=== PATIENT | female | born 1985 | race African-American/Black ===

== ENCOUNTER 2019-01-28 10:04 | Outpatient (CLI) | payer BC ==
--- NOTE | 2019-01-28 11:04 | ULT ---
ULTRASOUND RETROPERITONEUM COMPLETE: (RENAL) 01/28/2019 HISTORY: A 33-year-old female with chronic hematuria and right flank pain. FINDINGS: The right kidney measures 11 x 5.5 x 5 cm. The left kidney measures 11 x 7 x 7 cm. No hydronephrosis bilaterally. No moderate size or large renal cyst identified. Tiny, nonshadowing, hyperechoic focus at the parenchyma of the right renal mid pole. This could be a portion of a blood vessel, a tiny angiomyolipoma, or a tiny calculus. At the mid pole of the left kidney, there is a focal 3.5 x 4.5 cm mass-like protrusion of the renal p arenchymal with echogenicity similar to that of surrounding normal renal parenchyma. The urinary bladder is empty and cannot be evaluated. IMPRESSION: 1. Focal mass-like protrusion from the mid pole of the left kidney: Dromedary hump versus primary r enal neoplasm. Recommend further evaluation with MRI of the abdomen with and without contrast with a ttention to kidneys. 2. Punctate hyperechoic focus in the right renal mid pole. Blood vessel versus tiny angiomyolipoma versus tiny calculus. JN R POS: [facility]
== END 2019-01-28 10:05 | disposition home or self-care (01) ==
LOC: BICULT 10:04
PROVIDERS: ATTEND Family Medicine
DX: R10.9 Unspecified abdominal pain (principal); R31.9 Hematuria, unspecified; N28.9 Disorder of kidney and ureter, unspecified
CPT/HCPCS: 76770; 81001; 87086

== ENCOUNTER 2019-02-23 12:25 | Outpatient (CLI) | payer BC ==
[~2019-02-23 12:25] MED LIST: Iopamidol 370 76% 100 ML VIAL ONE
--- NOTE | 2019-02-23 16:59 | CT ---
CT abdomen and pelvis with and without IV contrast HISTORY: Renal mass. Abnormal sonogram. COMPARISON: Renal sonogram 01/28/2019. FINDINGS: Each renal collecting system, ureter, and urinary bladder are decompressed without stone ap parent. No filling defects are apparent within the urinary system on the delayed images. No focal renal mass. Coronal images show prominent flattening of the superior lateral portion of the left kidney against the spleen. The resulting lateral, contains a normal cortical and collecting structures. Nonspecific lymph nodes along each inguinal chain. No free air or free fluid. No evidence of bowel ob struction. IMPRESSION: No CT evidence of renal mass. A prominent dromedary hump of the left kidney accounts for the area of concern on recent sonogram.
== END 2019-02-23 12:26 | disposition home or self-care (01) ==
LOC: SCSMRI 12:25
PROVIDERS: ATTEND Urology
DX: N28.89 Other specified disorders of kidney and ureter (principal)
CPT/HCPCS: 74178; Q9967

== ENCOUNTER 2020-12-12 08:34 | Outpatient (CLI) | payer BC | END 2020-12-12 08:35 | disposition home or self-care (01) | LOC: BICULT 08:34 | PROVIDERS: ATTEND Family Medicine | DX: D25.9 Leiomyoma of uterus, unspecified (principal) | CPT/HCPCS: 76856 ==

== ENCOUNTER 2024-02-27 11:53 | Outpatient (CLI) | payer BC | END 2024-02-27 11:54 | disposition home or self-care (01) | LOC: SCSRAD 11:53 | PROVIDERS: ATTEND Nurse Practitioner Family | DX: M79.644 Pain in right finger(s) (principal); M65.4 Radial styloid tenosynovitis [de Quervain] ==